=== PATIENT | female | born 2000 | race Caucasian/White ===

== ENCOUNTER 2023-12-26 11:19 | Emergency (ER) | payer BC, SELFPAY ==
[2023-12-26 11:23] VITALS: BP 130/91
[2023-12-26 12:04] LABS: COVID-19 Antigen Negative (Negative)
--- NOTE | 2023-12-26 12:21 | ED.GENMED ---
History of Present Illness
General
Chief Complaint: Throat Problem
Source: patient
Time Seen by Provider: 12/26/23 12:04
History of Present Illness
History of Present Illness:
23yoF with no significant past medical history presenting for evaluation of a sore throat. She initially started with URI symptoms about 2 weeks ago and developed a sore throat 1 week ago. She reports white spots on her tonsils and pain with
swallowing. She was seen at urgent care last week and rapid strep was negative. She was given a prescription for amoxicillin to start if her symptoms did not improve which she started 4 days ago. She has not noticed any improvement with the
antibiotics. She reports hot and cold flashes and fatigue.
Phy Exam
General Physical Exam
General Presentation: well appearing and no apparent distress
General age: appears stated age
General Skin: warm and dry
General Habitus: normal
General Mental: alert
ENT Exam
ENT Exam: neck supple, normocephalic, pharyngeal erythema, swallowing well, tonsillar exudate and other (Bilateral tonsillar erythema and exudates noted. Tonsils 2+ bilaterally. Uvula midline. No trismus. Normal phonation. Tolerating oral secretions
without difficulty.)
Cardiovascular Exam
Cardiovascular Exam: regular rate/rhythm and no murmur
Pulmonary Exam
Pulmonary Exam: lungs clear, no respiratory distress, no crackles and no wheezing
[place] Coma Scale
Eye Opening: Spontaneous
Verbal Response: Oriented
Motor Response: Obeys Commands
GCS Total Score: 15
Skin Exam
Skin Exam: normal color and warm/dry
Psychiatric Exam
Psychiatric Exam: normal mood/affect
Course
Orders/Labs/Results
Orders:
Orders
12/26/23 11:35
COVID-19 Antigen Urgent
Source: Nasal Swab
Influenza A+B Rapid Molecular Urgent
NIKOLAS Source: Nasal Swab
Specimen Description:
Date Specimen was Collected: 12/26/23
Time Specimen was Collected: 11:
Rapid Strep Group A Urgent
NIKOLAS Source: Throat/Pharynx
Specimen Description:
Date Specimen was Collected: 12/26/23
Time Specimen was Collected: :
12/26/23 12:20
Dexamethasone [Decadron] 10 mg PO NOW STA
Mag&Al/Sim/Diphenhyd/Lidocaine [First-Mouthwash Blm Suspension] 5 ml PO ONCE ONE
12/26/23 12:41
Monotest Urgent
Abnormal Lab Results
12/26/23
12:41
Monoscreen Positive A
(Negative)
Vital Signs
Initial and Last Documented VS:
Initial Vital Signs
Temp Pulse Resp BP Pulse Ox
98 F 93 16 130/91 98
12/26/23 11:23 12/26/23 11:23 12/26/23 11:23 12/26/23 11:23 12/26/23 11:23
Last Documented Vital Signs
Temp Pulse Resp BP Pulse Ox
98 F 84 16 124/71 98
12/26/23 11:23 12/26/23 14:05 12/26/23 11:23 12/26/23 14:05 12/26/23 11:23
MDM/Problems Addressed
Differential Diagnosis Includes:
23yoF here with a sore throat x 1 week. Seen at urgent care last week. Rapid strep negative. She started amoxil 4 days ago without improvement. VSS. She is well appearing in no distress. There is bilateral tonsillar erythema and exudates on exam.
Differential diagnosis includes but is not limited to: strep, mono, viral pharyngitis. No clinical signs of [employer], RPA, or epiglottitis
Initial ED plan: Strep and COVID/flu testing obtained in triage. Will check monotest. Decadron and magic mouthwash ordered for symptoms.
*Critical Care Note
Total Time (30-74mins, 75-104mins- exclusive of procedures): Not Applicable
Update Note
Update Note:
Monotest positive. She is tolerating PO intake. She is stable for discharge. Supportive care discussed. Will prescribe viscous lidocaine for home. She was advised to f/u with PCP and ED return precautions discussed. She expressed understanding and
is agreeable to plan. She was discharged in stable condition.
ED Attending Note
-
Portions of this chart may have been created with voice recognition software.� Occasional wrong word or��sound alike� substitutions may have occurred due to the inherent limitations of voice recognition software.
Discharge Plan
Departure
Patient Disposition: Home (Routine Discharge)
Date of Disposition: 12/26/23
Time of Disposition: 13:49
Patient with high blood pressure during this ER visit?: No
Discharge Problem:
Mononucleosis
Instructions: Mononucleosis (DC)
Prescriptions:
New
lidocaine HCl [Lidocaine Viscous] 2 % solution
10 ml mucous membrane TID PRN (Reason: mouth pain) Qty: 100 0RF
Rx Instructions:
Swish and swallow
Referrals:
UNKNOWN - PT DOES,NOT KNOW [Family Provider] -
Stand Alone Forms: Return to Work
Activity Restrictions/Additional Instructions:
Use viscous lidocaine as needed for sore throat. You may also use honey, lozenges, and tea. Drink plenty of fluids and rest. No contact sports for 4-6 weeks.
Please follow-up with your family doctor. Return to the ER with any worsening symptoms or inability to swallow.
Interventions
Interventions:
*Risk Screen - Suicide Last Done: 12/26/23 11:23
*General Assessment Last Done: 12/26/23 11:23
*Neglect/Abuse Screening Last Done: 12/26/23 11:23
ED- Fall Risk Assessment Last Done: 12/26/23 12:43
*ED COVID-19 Vaccine History Last Done: 12/26/23 12:43
*Nursing Disposition Last Done: 12/26/23 14:05
ED-EENT Assessment Last Done: 12/26/23 12:43
ED- Pulmonary Assessment Last Done: 12/26/23 12:43
Discharge Date and Time
Discharge Date/Time: 12/26/23 14:06
Print Language: LITHUANIAN
[2023-12-26] MEDS: DECADRON 10 MG PO (12:32)
[2023-12-26] MEDS: FIRST-MOUTHWASH BLM SUSPENSION 5 ML PO (12:33)
[2023-12-26 12:42] VITALS: BMI 22.9
[2023-12-26 13:21] LABS: Monotest Positive (Negative)
[2023-12-26 14:05] VITALS: BP 124/71
== END 2023-12-26 14:06 | disposition home or self-care (01) ==
LOC: EMR 11:19
PROVIDERS: Physician Assistant; EMERGENCY PHYSICIAN Emergency Medicine
DX: B27.90 Infectious mononucleosis, unspecified without complication (principal)
CPT/HCPCS: 99283; 86308; 87070; 87502; 87811; 87880

== ENCOUNTER → 2024-11-27 14:06 | Outpatient (REF) | payer BC, SELFPAY | LOC: RAD 14:06 | PROVIDERS: ATTENDING PHYSICIAN Internal Medicine; FAMILY PHYSICIAN Family Medicine | DX: R19.8 Other specified symptoms and signs involving the digestive system and abdomen (principal); R10.33 Periumbilical pain | CPT/HCPCS: 74019 ==